=== PATIENT | female | born 1975 | race Caucasian/White ===

== ENCOUNTER 2019-03-21 10:09 | Emergency (ER) | payer SELFPAY, MEDICAID ==
[2019-03-21] MEDS: LIDOCAINE 1% (MPF) 5 ML VIAL INJ (11:42)
[2019-03-21] MEDS: CEFTRIAXONE 1 GM INJ IM (11:43)
== END 2019-03-21 12:10 | disposition home or self-care (01) ==
LOC: FTE 10:09
DX: N64.4 Mastodynia (principal)
CPT/HCPCS: 96372; 99284-25